=== PATIENT | female | born 1955 | race Caucasian/White ===

== ENCOUNTER 2022-04-05 20:31 | Emergency (ER) | payer OTHER ==
[2022-04-05] MEDS ORDERED: TORADOL 10 MG T10 MG PO (22:12)
== END 2022-04-05 23:10 | disposition home or self-care (01) ==
LOC: ER1 20:31
DX: S96.911A Strain of unspecified muscle and tendon at ankle and foot level, right foot, initial encounter (principal); S96.912A Strain of unspecified muscle and tendon at ankle and foot level, left foot, initial encounter; W10.8XXA Fall (on) (from) other stairs and steps, initial encounter; Y92.009 Unspecified place in unspecified non-institutional (private) residence as the place of occurrence of the external cause
CPT/HCPCS: 73610; 73630; 96372; 99283; J1885